=== PATIENT | male | born 1980 | race Caucasian/White ===

== ENCOUNTER 2022-12-29 07:55 | Outpatient (REF) | payer OTHER, SELFPAY ==
--- NOTE | 2022-12-29 08:12 | ECG_ITS ---
Test Reason : Fatigue, Bradycardia Blood Pressure : / mmHG Vent. Rate : 076 BPM Atrial Rate : 076 BPM P-R Int : 150 ms QRS Dur : 108 ms QT Int : 380 ms P-R-T Axes : 059 066 067 degrees QTc Int : 427 ms Normal sinus rhythm Normal ECG When compared with ECG of 29-JAN-2019 11:14, Vent. rate has decreased BY 39 BPM Referred By: Padma Montes De Oca Electronically Signed By:Juanito Hughes
[2022-12-29 08:13] LABS: MANUAL DIFF FLAG NO
[2022-12-29 08:45] LABS: Basophils Percent Auto 0.5 % (0-2); Eosinophils Absolute Auto 0.2 X10*3/uL (0.0-0.4); Hematocrit 44.9 % (42.0-52.0); Imm Gran Abs Auto 0.03 X10*3/uL (0.00-0.03); Imm Gran Pct Auto 0.4 % (0.0-0.4); Lymphocytes Absolute Auto 0.9 X10*3/uL (1.2-4.9); Lymphocytes Percent Auto 12.4 % (20-40); Mean Corpuscular HGB Conc 33.4 g/dl (31.0-36.0); Mean Corpuscular Hemoglobin 30.5 pg (27.0-33.0); Mean Corpuscular Volume 91.3 fL (80.0-98.0); Mean Platelet Volume 9.8 fL (9.4-12.4); Monocytes Absolute Auto 0.6 X10*3/uL (0.1-1.2); Monocytes Percent Auto 7.4 % (2-11); Neutrophils Absolute Auto 5.8 x10*3/uL (2.0-8.3); Neutrophils Percent Auto 77.3 % (45-73); Platelet Count 230 X10*3/uL (160-400); Red Blood Count 4.92 X10*6/uL (4.60-5.80); Red Cell Distribution Width 12.4 % (11.0-16.0); White Blood Count 7.5 X10*3/uL (4.8-10.8)
[2022-12-29 09:22] LABS: Lithium 0.61 mmol/L (0.60-1.20)
[2022-12-29 09:37] LABS: Alanine Aminotransferase 12 U/L (0-40); Albumin Level 4.5 g/dL (3.5-5.0); Alkaline Phosphatase 55 U/L (39-117); Anion Gap 11 (12-20); Aspartate Amino Transferase 11 U/L (5-37); Bilirubin Total 0.2 mg/dL (0.0-1.0); Blood Urea Nitrogen 16 mg/dL (9-16); Calcium 9.9 mg/dL (8.4-10.2); Carbon Dioxide 25 mmol/L (22-29); Chloride 112 mmol/L (96-108); Cholesterol 171 mg/dL; Estimated Glomerular Filt Rate > 60; Glucose Fasting 112 mg/dL (60-99); HDL Cholesterol 36 mg/dL; LDL Cholesterol Calculated 116 mg/dl; Magnesium 2.4 mg/dL (1.6-2.6); Potassium 4.2 mmol/L (3.3-5.1); Sodium 144 mmol/L (135-145); Triglycerides 99 mg/dL
[2022-12-29 09:44] LABS: Free T4 (Free Thyroxine) 0.93 ng/dL (0.71-1.85); Thyroid Stimulating Hormone 1.98 uIU/mL (0.32-4.0); Vitamin D 25-OH Total 33.7 ng/mL (>30)
[2022-12-29 10:02] LABS: Folate 7.5 ng/mL (> or = 4.0); Vitamin B12 564 pg/mL (200-900)
== END 2022-12-29 07:56 | disposition home or self-care (01) ==
LOC: HO.LAB 07:55
PROVIDERS: PCP Internal Medicine; Visit Provider Clinical Nurse Specialist Psychiatric/Mental Health
DX: F14.20 Cocaine dependence, uncomplicated (principal); F11.20 Opioid dependence, uncomplicated; F10.20 Alcohol dependence, uncomplicated; F31.81 Bipolar II disorder; R53.83 Other fatigue; R00.1 Bradycardia, unspecified; Z79.899 Other long term (current) drug therapy
CPT/HCPCS: 36415; 80053; 80061; 80178; 82306; 82607; 82746; 83735; 84439; 84443; 85025; 93005

== ENCOUNTER → 2022-12-29 08:12 | Outpatient (BNV) | payer OTHER, SELFPAY | PROVIDERS: PCP Internal Medicine; Visit Provider Internal Medicine Cardiovascular Disease | DX: R00.1 Bradycardia, unspecified (principal) | CPT/HCPCS: 93010 ==

== ENCOUNTER → 2023-01-01 10:15 | Outpatient (BNV) | payer OTHER, SELFPAY | PROVIDERS: Visit Provider Clinical Nurse Specialist Psychiatric/Mental Health | DX: F31.81 Bipolar II disorder (principal) | CPT/HCPCS: 90792; 99212; 99213 ==

== ENCOUNTER 2023-01-12 10:00 | Outpatient (RCR) | payer OTHER, SELFPAY ==
[2022-12-27 13:10] VITALS: BP 116/76; PULSE 74; TEMP 36.9
[2022-12-27 13:18] VITALS: BMI 26.9
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
--- NOTE | 2022-12-29 08:24 | HO.PHP ---
The clients case was reviewed and opened in treatment team
--- NOTE | 2023-01-01 10:34 | HO.PHPPROGNO ---
Subjective Subjective Date of Service: 01/01/23 Reason For Visit: EARLE,MDD,SARANYA Healthcare Proxy: No Guardianship: No Medical Problems Affecting Mental Status: No Interim History: Chandan is seen in follow-up at the request of the nurse at [facility]. He was seen last week by Padma Willson. He carries diagnosis of bipolar disorder, substance abuse, generalized anxiety disorder. He was put on Caplyta which she had taken for 2 months and did not take it for few days because of an insurance glitch and when he got is refill last week and starting it again he felt more anxious and. Did on Sunday. He did not find to be helpful in any way over the course of the 2 months. We reviewed previous medications used for anxiety and ?nothing worked?. He does have history of substance abuse and he is aware that prescribers are not willing to give him benzodiazepines because of this. He was not open to trying clonidine. His laboratory studies ordered last week an EKG were reviewed. His lithium level is 0.61. He denies any side effects. No additions or changes were made today Medication Compliance: Yes Side effects from medications: Yes (Increase of anxiety on Caplyta) Review of Systems Review of Systems Yes all other systems are reviewed and are negative Mental Status Exam Mental Status Exam Patient Appearance: Appropriate Patient Orientation: Person, Place, Time and Situation Level of Consciousness: Awake Patient Behavior: Appropriate, Cooperative, Anxious and Good Eye Contact Mood Description: Appropriate and Anxious Affect Description: Anxious and Sad Patient Cognition Impaired: No Ability to Follow Directions: Good Speech Pattern: Clear, Appropriate and Pressured (moderately pressured, blurts ) Memory Description: Intact Hallucinations: None Delusions: Not Present Thought Process: Intact and Goal Oriented Thought Content: positive for Intact and positive for Goal Oriented Judgement: Fair Diagnostics Vital Signs (24Hr): BMI result Body Mass Index 26.9 Assessment & Plan Assessment & Plan (1) Bipolar II disorder, severe, depressed, with anxious distress: Status: Acute Code(s): F31.81 - Bipolar II disorder Plan Continue partial hospital program. Continue current medications. He will follow-up with his outpatient prescriber Patient educated on: medication risk/benefits Certification I certify that partial hospital treatment is medically necessary due to the symptoms and problems resulting from the patient's mental illness and the failure to treat the patient at the [facility] hospital level of care would likely result in the patient requiring inpatient psychiatric care which could not be prevented at a less intensive level of care. Total time managing care of this patient today ____ minutes. Discharge Plan Discharge Attending provider: Rikki Rahman Medications: No Action lamotrigine 150 mg tablet 300 mg PO DAILY gabapentin 800 mg tablet See Rx Instructions .ROUTE .COMPLEX Rx Instructions: Take 800 mg BID. May take an additional 2 tabs QHS PRN form sleep. quetiapine 50 mg tablet 50 mg PO BEDTIME buprenorphine-naloxone 8-2 mg film 20 mg sublingual DAILY lithium carbonate 300 mg Capsule 900 mg PO BEDTIME Rx Instructions: Take 3 Capsules at HS. omeprazole 40 mg capsule,delayed release(DR/EC) 40 mg PO QPM Caplyta 42 mg capsule 42 mg PO BEDTIME
--- NOTE | 2023-01-01 11:39 | PC.NURSE ---
Chandan stated he has discontinued Caplyta d/t feelings of increased anxiety and depression. Dr Arevalo is aware and saw the patient today to f/u.
--- NOTE | 2023-01-01 11:59 | PC.NURSE ---
Dr Chaudhrai reviewed Chandan's Labs and EKG completed on 12/29/22 including CL 112, GAP 11, FBS 112, LDL 116, HDL 36, [place] level 0.61.
--- NOTE | 2023-01-01 12:02 | PC.NURSE ---
Lab and EKG results done on 12/29/22 faxed to Chandan's PCP Zackery Hopkins.
[2023-01-03 15:12] LABS: Amphetamine Screen Urine Not Detected (Not Detect); Barbiturates, Urine Not Detected (Not Detect); Benzodiazepines Screen Urine Not Detected (Not Detect); Cannabinoid Screen Urine POSITIVE (Not Detect); Cocaine Screen Urine Not Detected (Not Detect); Fentanyl, urine Not Detected (Not Detect); Opiate Screen Urine Not Detected (Not Detect); Phencyclidine Screen Urine Not Detected (Not Detect)
--- NOTE | 2023-01-11 13:59 | P.PNPSP_ITS ---
Subjective Subjective Date of Service: 01/11/23 Reason For Visit: EARLE,MDD,SARANYA Interim History: Chandan is seen in follow-up today; He is preparing for discharge; he feel ready to go back to work next week; feels he has made good progress at [facility]. His laboratory studies ordered last week an EKG were reviewed. His lithium level is 0.61. He denies any side effects. No additions or changes were made today Medication Compliance: Yes Side effects from medications: No Attending Groups: Yes Review of Systems Review of Systems Yes all other systems are reviewed and are negative Mental Status Exam Mental Status Exam Patient Appearance: Appropriate Patient Orientation: Person, Place, Time and Situation Level of Consciousness: Awake Patient Behavior: Appropriate, Cooperative, Anxious and Good Eye Contact Mood Description: Appropriate and Anxious Affect Description: Anxious and Sad Patient Cognition Impaired: No Ability to Follow Directions: Good Speech Pattern: Clear, Appropriate and Pressured (moderately pressured, blurts ) Memory Description: Intact Judgement: Good Diagnostics Vital Signs (24Hr): BMI result Body Mass Index 26.9 Assessment & Plan Assessment & Plan (1) Bipolar II disorder, severe, depressed, with anxious distress: Status: Acute Code(s): F31.81 - Bipolar II disorder Plan Continue partial hospital program. He is ready for discharge tomorrow; return to work form completed. STD paperwork completed. Continue current medications. He will follow-up with his outpatient prescriber Patient educated on: diagnosis, medication risk/benefits, substance abuse and therapeutic strategies Informed Consent: understands and further education needed Reason for contiued partial hosp. stay Substantial Risk for: stable for discharge Certification I certify that partial hospital treatment is medically necessary due to the symptoms and problems resulting from the patient's mental illness and the failure to treat the patient at the partial hospital level of care would likely result in the patient requiring inpatient psychiatric care which could not be prevented at a less intensive level of care. Total time managing care of this patient today ____ minutes. Discharge Plan Discharge Attending provider: Rikki Rahman Medications: No Action lamotrigine 150 mg tablet 300 mg PO DAILY gabapentin 800 mg tablet See Rx Instructions .ROUTE .COMPLEX Rx Instructions: Take 800 mg BID. May take an additional 2 tabs QHS PRN form sleep. quetiapine 50 mg tablet 50 mg PO BEDTIME buprenorphine-naloxone 8-2 mg film 20 mg sublingual DAILY lithium carbonate 300 mg Capsule 900 mg PO BEDTIME Rx Instructions: Take 3 Capsules at HS. omeprazole 40 mg capsule,delayed release(DR/EC) 40 mg PO QPM Stand Alone Forms: Patient Portal Discharge page Patient Education: Bipolar Disorder (DC), Alcohol Use Disorder (DC), Opioid Use Disorder (DC)
--- NOTE | 2023-01-12 17:22 | PC.NURSE ---
Patient discharged from [facility] on 01/12/23. Discharge routine. Discharged to out patient providers. Patient states he is ready for discharge, denies SI/HI with no plan, no intent. Discharge plan including discharge medications reviewed with patient who verbalized understanding. Copy of discharge plan and medication list given to patient. Copy of discharge medication list faxed to out patient providers.
--- NOTE | 2023-01-16 08:23 | HO.PHP ---
A call was made on 01/15 to Sophia Acosta [facility] . A message was left re clients discharge and progress made in [place].
== END 2023-01-12 23:59 | disposition home or self-care (01) ==
LOC: HO.PHPA 10:00
PROVIDERS: Visit Provider Psychiatry & Neurology Psychiatry
DX: F31.81 Bipolar II disorder (principal); F11.21 Opioid dependence, in remission; F10.21 Alcohol dependence, in remission
CPT/HCPCS: 80307; 90791; 90853